=== PATIENT | male | born 1985 | race American Indian/Alaskan Native ===

== ENCOUNTER 2017-03-08 12:11 | Emergency (ER) | payer OTHER ==
[2017-03-08 13:08] VITALS: BP 148/98
[2017-03-08] MEDS ORDERED: FLEXERIL PO ONE (13:50)
[2017-03-08] MEDS ORDERED: TORADOL IM ONE (13:50)
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
== END 2017-03-08 14:15 | disposition home or self-care (01) ==
LOC: ED 12:11
DX: M62.838 Other muscle spasm (principal); M54.9 Dorsalgia, unspecified; V43.92XA Unspecified car occupant injured in collision with other type car in traffic accident, initial encounter; Y93.89 Activity, other specified; Y99.8 Other external cause status; Y92.098 Other place in other non-institutional residence as the place of occurrence of the external cause
CPT/HCPCS: 96372; 99282; J1885

== ENCOUNTER 2021-07-22 18:14 | Emergency (ER) | payer SELFPAY ==
[2021-07-22 20:46] VITALS: BP 177/101
[2021-07-22] MEDS ORDERED: LIDOCAINE-MPF (1%) 10 MG/1 ML VIAL 5 ML INFILTRATI ONE (21:21)
--- NOTE | 2021-07-22 21:28 | Emergency Department Report ---
ED General Adult HPI - General Chief complaint: Urogenital-Male Stated complaint: BURNING/DISCHARGE Time Seen by Provider: 07/22/21 21:05 Source: patient Mode of arrival: Ambulatory Limitations: No Limitations - History of Present Illness Severity scale (0 -10): 0 - Related Data Previous Rx's Medication Instructions Recorded Last Taken Type Cyclobenzaprine [Flexeril] 10 mg PO BID PRN #12 tablet 03/08/17 Unknown Rx methylPREDNISolone [Medrol] 4 mg PO DAILY #1 tab.ds.pk 03/08/17 Unknown Rx traMADoL [Ultram] 50 mg PO Q12H PRN #12 tablet 03/08/17 Unknown Rx Doxycycline Monohydrate 100 mg PO BID 7 Days #14 capsule 07/22/21 Unknown Rx Allergies Allergy/AdvReac Type Severity Reaction Status Date / Time No Known Allergies Allergy Unverified 03/08/17 12:58 ED Review of Systems ROS: Stated complaint: BURNING/DISCHARGE Other details as noted in HPI ED Past Medical Hx - Past Medical History Previous Medical History?: Yes Hx Hypertension: Yes Hx Diabetes: Yes - Surgical History Past Surgical History?: Yes Additional Surgical History: Knee - Social History Smoking Status: Never Smoker Substance Use Type: Alcohol - Medications Home Medications: Home Medications Medication Instructions Recorded Confirmed Last Taken Type Cyclobenzaprine [Flexeril] 10 mg PO BID PRN #12 tablet 03/08/17 Unknown Rx methylPREDNISolone [Medrol] 4 mg PO DAILY #1 tab.ds.pk 03/08/17 Unknown Rx traMADoL [Ultram] 50 mg PO Q12H PRN #12 tablet 03/08/17 Unknown Rx Doxycycline Monohydrate 100 mg PO BID 7 Days #14 capsule 07/22/21 Unknown Rx ED Physical Exam - General Limitations: No Limitations ED Course Vital Signs 07/22/21 20:44 Temperature 98.5 F Pulse Rate 89 Respiratory 18 Rate Blood Pressure 177/101 [Left] O2 Sat by Pulse 100 Oximetry Critical care attestation.: If time is entered above; I have spent that time in minutes in the direct care of this critically ill patient, excluding procedure time. ED Disposition Clinical Impression: Penile discharge Disposition: 01 HOME / SELF CARE / HOMELESS Is pt being admited?: No Condition: Stable Instructions: Urethritis, Adult Additional Instructions: Please follow up with the health department for full sexually transmitted infection testing within 2 to 3 days Prescriptions: Doxycycline Monohydrate 100 mg PO BID 7 Days #14 capsule
== END 2021-07-22 22:07 | disposition home or self-care (01) ==
LOC: ED 18:14
DX: R36.9 Urethral discharge, unspecified (principal); I10 Essential (primary) hypertension; E11.9 Type 2 diabetes mellitus without complications; Z72.89 Other problems related to lifestyle
CPT/HCPCS: 96372; 99281; J0696